=== PATIENT | female | born 1975 | race Caucasian/White ===

== ENCOUNTER 2021-06-09 18:58 | Emergency (ER) | payer SELFPAY ==
[~2021-06-09] VITALS: Ht 165.1 cm; Wt 59.0 kg
[2021-06-09] MEDS ORDERED: ONDANSETRON ODT4 MG PO (19:21)
[2021-06-09] MEDS ORDERED: ONDANSETRON HCL 4 MG ORAL DISINTEGRATING TAB PO ONE (19:30)
== END 2021-06-09 19:45 | disposition home or self-care (01) ==
LOC: ER 19:17
DX: F15.10 Other stimulant abuse, uncomplicated (principal); R11.2 Nausea with vomiting, unspecified; F17.210 Nicotine dependence, cigarettes, uncomplicated
CPT/HCPCS: 93005; 99283; Q0162